=== PATIENT | male | born 2000 | race Caucasian/White ===

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

== ENCOUNTER 2022-01-19 22:47 | Emergency (ER) | payer OTHER ==
[~2022-01-19] VITALS: Ht 185.4 cm; Wt 68.2 kg
[~2022-01-19 22:47] MED LIST changes: +OSEL75CA PO
[2022-01-19 23:28] LABS: HEMATOCRIT 40.3 % (42.0-52.0); HEMOGLOBIN 14.3 g/dl (13.5-17.5); MEAN CORPUSCULAR HGB CONC 35.5 g/dl (32.0-36.5); MEAN CORPUSCULAR VOLUME 87.2 fl (80.0-96.0); PLATELET COUNT, AUTOMATED 271 10^3/uL (150-450); RED BLOOD COUNT 4.62 10^6/uL (4.30-6.10); WHITE BLOOD COUNT 6.6 10^3/uL (4.0-10.0)
[2022-01-19 23:53] LABS: AMPHETAMINES LEVEL URINE NEGATIVE (NEGATIVE); BARBITURATES URINE NEGATIVE (NEGATIVE); BENZODIAZEPINES URINE NEGATIVE (NEGATIVE); CANNABINOIDS URINE NEGATIVE (NEGATIVE); COCAINE METABOLITE URINE NEGATIVE (NEGATIVE); METHADONE URINE NEGATIVE (NEGATIVE); OPIATES URINE NEGATIVE (NEGATIVE); PHENCYCLIDINE URINE NEGATIVE (NEGATIVE)
[2022-01-20 00:01] LABS: RSV AMPLIFICATION NEGATIVE (NEGATIVE)
[2022-01-20 00:05] LABS: ALBUMIN 4.2 GM/DL (3.2-5.2); ALT/SGPT 21 U/L (12-78); BILIRUBIN,DIRECT 0.1 MG/DL (0.0-0.2); BILIRUBIN,TOTAL 0.5 MG/DL (0.2-1.0); BLOOD UREA NITROGEN 13 MG/DL (7-18); CALCIUM LEVEL 9.7 MG/DL (8.5-10.1); CARBON DIOXIDE LEVEL 24 MEQ/L (21-32); CHLORIDE LEVEL 108 MEQ/L (98-107); CREATININE FOR GFR 1.06 MG/DL (0.70-1.30); ETHYL ALCOHOL (ETHANOL) < 0.003 % (0.000-0.010); GLUCOSE, FASTING 119 MG/DL (70-100); POTASSIUM SERUM 3.7 MEQ/L (3.5-5.1); SALICYLATE LEVEL < 1.7 MG/DL (5.0-30.0); SODIUM LEVEL 142 MEQ/L (136-145); TOTAL PROTEIN 7.3 GM/DL (6.4-8.2)
[2022-01-20 03:00] VITALS: BP 140/87
[2022-01-20 05:09] LABS: ACETAMINOPHEN LEVEL < 2.0 UG/ML (0.0-30.0)
== END 2022-01-20 03:03 | disposition home or self-care (01) ==
LOC: M ED 22:47
DX: F43.0 Acute stress reaction (principal); F43.10 Post-traumatic stress disorder, unspecified; F32.A Depression, unspecified; Z88.2 Allergy status to sulfonamides

== ENCOUNTER 2022-08-07 23:46 | Emergency (ER) | payer OTHER ==
[~2022-08-07] VITALS: Ht 182.9 cm; Wt 69.3 kg
[2022-08-07 23:49] VITALS: BP 148/81
== END 2022-08-08 00:59 | disposition left against medical advice (07) ==
LOC: M ED 23:46
DX: Z53.21 Procedure and treatment not carried out due to patient leaving prior to being seen by health care provider (principal)

== ENCOUNTER 2022-12-17 01:12 | Emergency (ER) | payer OTHER ==
[~2022-12-17] VITALS: Ht 185.4 cm; Wt 67.6 kg
[2022-12-17 01:12] VITALS: BP 133/73
== END 2022-12-17 04:00 | disposition left against medical advice (07) ==
LOC: M ED 01:12
DX: Z53.21 Procedure and treatment not carried out due to patient leaving prior to being seen by health care provider (principal)

== ENCOUNTER 2024-02-26 12:56 | Emergency (ER) | payer OTHER, SELFPAY ==
[~2024-02-26] VITALS: Ht 185.4 cm; Wt 67.7 kg
[2024-02-26 14:48] LABS: BASO % 0.6 % (0.0-1.0); EOS # 0.1 10^3/uL (0.0-0.5); EOS % 1.5 % (0.0-3.0); HEMATOCRIT 46.1 % (42.0-52.0); HEMOGLOBIN 16.3 g/dl (13.5-17.5); LYMPH # 1.1 10^3/uL (1.5-5.0); LYMPH % 19.5 % (24.0-44.0); MEAN CORPUSCULAR HEMOGLOBIN 31.4 pg (27.0-33.0); MEAN CORPUSCULAR HGB CONC 35.4 g/dl (32.0-36.5); MEAN CORPUSCULAR VOLUME 88.8 fl (80.0-96.0); MONO # 0.4 10^3/uL (0.0-0.8); NEUTROPHILS # 3.9 10^3/uL (1.5-8.5); NEUTROPHILS % 70.8 % (36.0-66.0); PLATELET COUNT, AUTOMATED 261 10^3/uL (150-450); RED BLOOD COUNT 5.19 10^6/uL (4.30-6.10); WHITE BLOOD COUNT 5.4 10^3/uL (4.0-10.0)
[2024-02-26 15:06] LABS: LIPASE 29 U/L (12-53)
[2024-02-26 15:08] LABS: ALBUMIN 4.7 G/DL (3.2-5.2); ALKALINE PHOSPHATASE 67 U/L (46-116); ALT/SGPT 17 U/L (7.0-40); AST/SGOT 9 U/L (<34); BILIRUBIN,DIRECT 0.4 MG/DL (<0.4); BILIRUBIN,TOTAL 1.4 MG/DL (0.3-1.2); TOTAL PROTEIN 7.5 G/DL (5.7-8.2)
[2024-02-26 15:36] LABS: CK-MB VALUE MASS < 1.0 NG/ML (<3.6)
[2024-02-26] MEDS: NS 1,000 ML IV ONE (15:36)
[2024-02-26 15:37] LABS: CPK CREATINE PHOSPHOKINASE 44 U/L (46-171); MB/CK RELATIVE INDEX 2.27 (< OR =4)
[2024-02-26] MEDS: ONDANSETRON 4MG 2ML VIAL IV ONE (15:37)
[2024-02-26] MEDS ORDERED: ONDA-282 PO (15:52)
[2024-02-26] MEDS ORDERED: HOLTER MONITOR XX (15:53)
[2024-02-26 17:22] VITALS: BP 123/60; TEMP 97.9; O2SAT 98
[2024-02-27] MEDS ORDERED: HYDR-3363 PO (08:49)
== END 2024-02-26 17:23 | disposition home or self-care (01) ==
LOC: M ED 12:56
DX: I49.3 Ventricular premature depolarization (principal); F43.10 Post-traumatic stress disorder, unspecified; F32.A Depression, unspecified; Z87.820 Personal history of traumatic brain injury; F17.290 Nicotine dependence, other tobacco product, uncomplicated; Z88.2 Allergy status to sulfonamides; Z79.899 Other long term (current) drug therapy
CPT/HCPCS: 71046; 80047; 80076; 82550; 82553; 83690; 84484; 85025; 93005; 96361; 96374; 99284; J2405

== ENCOUNTER 2024-02-27 05:09 | Emergency (ER) | payer MEDICAID, SELFPAY ==
[~2024-02-27] VITALS: Ht 185.4 cm; Wt 67.9 kg
[~2024-02-27 05:09] MED LIST changes: -HYDR-3363 PO
[2024-02-27] MEDS: NS 1,000 ML IV ONE (07:15)
[2024-02-27 07:16] LABS: BASO % 0.7 % (0.0-1.0); EOS % 0.5 % (0.0-3.0); HEMATOCRIT 41.4 % (42.0-52.0); HEMOGLOBIN 14.5 g/dl (13.5-17.5); LYMPH # 0.8 10^3/uL (1.5-5.0); LYMPH % 13.3 % (24.0-44.0); MEAN CORPUSCULAR HEMOGLOBIN 30.9 pg (27.0-33.0); MEAN CORPUSCULAR VOLUME 88.3 fl (80.0-96.0); MONO # 0.4 10^3/uL (0.0-0.8); MONO % 6.8 % (2.0-8.0); NEUTROPHILS # 4.8 10^3/uL (1.5-8.5); NEUTROPHILS % 78.4 % (36.0-66.0); PLATELET COUNT, AUTOMATED 215 10^3/uL (150-450); RED BLOOD COUNT 4.69 10^6/uL (4.30-6.10); WHITE BLOOD COUNT 6.2 10^3/uL (4.0-10.0)
[2024-02-27 07:36] LABS: D-DIMER QUANT < 0.27 ug/mL (<0.5); PARTIAL THROMBOPLASTIN TIME 29.6 SECONDS (24.8-34.2); PROTHROMBIN TIME 15.8 SECONDS (12.5-14.5)
[2024-02-27] MEDS: ONDANSETRON 4MG 2ML VIAL IV ONE (07:52)
[2024-02-27 07:55] LABS: AMPHETAMINES LEVEL URINE NEGATIVE (NEGATIVE); BARBITURATES URINE NEGATIVE (NEGATIVE); BENZODIAZEPINES URINE NEGATIVE (NEGATIVE); COCAINE METABOLITE URINE NEGATIVE (NEGATIVE); METHADONE URINE NEGATIVE (NEGATIVE); OPIATES URINE NEGATIVE (NEGATIVE); PHENCYCLIDINE URINE NEGATIVE (NEGATIVE)
[2024-02-27 07:56] LABS: CANNABINOIDS URINE NEGATIVE (NEGATIVE)
[2024-02-27 07:56] LABS: CK-MB VALUE MASS < 1.0 NG/ML (<3.6)
[2024-02-27 07:57] LABS: LIPASE 27 U/L (12-53)
[2024-02-27 07:59] LABS: CPK CREATINE PHOSPHOKINASE 41 U/L (46-171); MB/CK RELATIVE INDEX 2.43 (< OR =4)
[2024-02-27 08:00] LABS: FREE T4 1.29 NG/DL (0.89-1.76)
[2024-02-27 08:01] LABS: THYROID STIMULATING HORMONE 3.485 uIU/ML (0.55-4.78)
[2024-02-27 08:17] LABS: ALBUMIN 4.2 G/DL (3.2-5.2); ALKALINE PHOSPHATASE 60 U/L (46-116); ALT/SGPT 14 U/L (7.0-40); AST/SGOT < 8 U/L (<34); BILIRUBIN,DIRECT 0.3 MG/DL (<0.4); BILIRUBIN,TOTAL 0.9 MG/DL (0.3-1.2); BLOOD UREA NITROGEN 9 MG/DL (9-23); CALCIUM LEVEL 9.6 MG/DL (8.5-10.1); CARBON DIOXIDE LEVEL 26 MMOL/L (20-31); CHLORIDE LEVEL 108 MMOL/L (98-107); CREATININE FOR GFR 0.87 MG/DL (0.70-1.30); GLOMERULAR FILTRATION RATE > 60.0 (>60); GLUCOSE, FASTING 94 MG/DL (60-100); POTASSIUM SERUM 3.8 MMOL/L (3.5-5.1); SODIUM LEVEL 139 MMOL/L (136-145); TOTAL PROTEIN 6.7 G/DL (5.7-8.2)
[2024-02-27] MEDS ORDERED: HYDR-3363 PO (08:49)
[2024-02-27 09:10] VITALS: BP 122/61; TEMP 97.4; O2SAT 98
== END 2024-02-27 09:13 | disposition home or self-care (01) ==
LOC: M ED 05:09
DX: F41.9 Anxiety disorder, unspecified (principal); R00.2 Palpitations; F43.10 Post-traumatic stress disorder, unspecified; F32.A Depression, unspecified; F17.290 Nicotine dependence, other tobacco product, uncomplicated; Z88.2 Allergy status to sulfonamides; Z79.899 Other long term (current) drug therapy
CPT/HCPCS: 80048; 80076; 80307; 82550; 82553; 83690; 83880; 84439; 84443; 84484; 85025; 85379; 85610; 85730; 93005; 93041; 94760; 96361; 96374; 99284; J2405

== ENCOUNTER 2024-02-27 19:41 | Emergency (ER) | payer SELFPAY ==
[~2024-02-27] VITALS: Ht 185.4 cm; Wt 67.0 kg
[~2024-02-27 19:41] MED LIST changes: +HYDR-3363 PO
[2024-02-27 19:56] VITALS: TEMP 98.3
[2024-02-27 20:44] LABS: BASO % 0.5 % (0.0-1.0); EOS # 0.1 10^3/uL (0.0-0.5); EOS % 0.9 % (0.0-3.0); HEMATOCRIT 43.6 % (42.0-52.0); HEMOGLOBIN 15.3 g/dl (13.5-17.5); LYMPH # 0.9 10^3/uL (1.5-5.0); LYMPH % 14.9 % (24.0-44.0); MEAN CORPUSCULAR HEMOGLOBIN 31.1 pg (27.0-33.0); MEAN CORPUSCULAR HGB CONC 35.1 g/dl (32.0-36.5); MEAN CORPUSCULAR VOLUME 88.6 fl (80.0-96.0); MONO # 0.5 10^3/uL (0.0-0.8); MONO % 9.1 % (2.0-8.0); NEUTROPHILS # 4.2 10^3/uL (1.5-8.5); NEUTROPHILS % 74.2 % (36.0-66.0); PLATELET COUNT, AUTOMATED 243 10^3/uL (150-450); RED BLOOD COUNT 4.92 10^6/uL (4.30-6.10); WHITE BLOOD COUNT 5.7 10^3/uL (4.0-10.0)
[2024-02-27 20:56] LABS: BLOOD UREA NITROGEN 8 MG/DL (9-23); CALCIUM LEVEL 9.6 MG/DL (8.5-10.1); CARBON DIOXIDE LEVEL 26 MMOL/L (20-31); CHLORIDE LEVEL 106 MMOL/L (98-107); CREATININE FOR GFR 0.88 MG/DL (0.70-1.30); GLOMERULAR FILTRATION RATE > 60.0 (>60); GLUCOSE, FASTING 87 MG/DL (60-100); POTASSIUM SERUM 3.9 MMOL/L (3.5-5.1); SODIUM LEVEL 139 MMOL/L (136-145)
[2024-02-27 22:50] VITALS: BP 123/64
[2024-02-27 23:11] VITALS: O2SAT 99
== END 2024-02-27 23:33 | disposition home or self-care (01) ==
LOC: M ED 19:41
DX: R55 Syncope and collapse (principal); I45.19 Other right bundle-branch block; F43.10 Post-traumatic stress disorder, unspecified; F10.10 Alcohol abuse, uncomplicated; Z88.2 Allergy status to sulfonamides; Z79.899 Other long term (current) drug therapy

== ENCOUNTER → 2024-02-27 | Outpatient (CLI) | payer SELFPAY ==
[~2024-02-27] MED LIST changes: +HOLTER MONITOR XX; +HYDR-3363 PO; +ONDA-282 PO
== END ==
LOC: M EKG 09:24
PROVIDERS: ATTEND Physician Assistant Medical
DX: R00.2 Palpitations (principal)

== ENCOUNTER 2024-02-29 15:08 | Emergency (ER) | payer MEDICAID, SELFPAY ==
[~2024-02-29] VITALS: Ht 185.4 cm; Wt 22.7 kg
[2024-02-29 16:38] VITALS: BP 141/86; TEMP 98.1; O2SAT 98
== END 2024-02-29 16:38 | disposition home or self-care (01) ==
LOC: EDBD 15:08 → M ED 15:08
DX: R00.2 Palpitations (principal); F41.1 Generalized anxiety disorder; K21.9 Gastro-esophageal reflux disease without esophagitis; F43.10 Post-traumatic stress disorder, unspecified; F32.A Depression, unspecified; F17.200 Nicotine dependence, unspecified, uncomplicated; F12.10 Cannabis abuse, uncomplicated; Z87.820 Personal history of traumatic brain injury; Z88.2 Allergy status to sulfonamides; Z79.899 Other long term (current) drug therapy; Z79.83 Long term (current) use of bisphosphonates

== ENCOUNTER 2024-04-11 22:36 | Emergency (ER) | payer MEDICAID, OTHER ==
[~2024-04-11] VITALS: Ht 185.4 cm; Wt 70.0 kg
[2024-04-11 22:37] VITALS: BP 131/89; TEMP 97.8; O2SAT 99
== END 2024-04-12 00:02 | disposition left against medical advice (07) ==
LOC: M ED 22:36
DX: Z53.21 Procedure and treatment not carried out due to patient leaving prior to being seen by health care provider (principal)